=== PATIENT | female | born 1965 | race Caucasian/White ===

== ENCOUNTER 2018-11-28 17:24 | Outpatient (REF) | payer OTHER, SELFPAY ==
--- NOTE | 2018-11-28 14:00 | PAPFT_PTH ---
PATIENT: Kavita Dixon LOC: [facility] U#:[id number] AGE/SX: 52/F ROOM: RE11/28/[address]: Katy Fatima MD, DC : 1965 BED: DIS: 11/28/2018 SPEC #: [id number] RECD: 11/29/18 12:57 STATUS: YUNIER REAmauri #: [id number] JESSE: 11/28/18 14:[address]: Katy Fatima DEPT: [facility] Cytology RECD BY: Ariela Soto Tissues: 1 - CX/ENDOCX FOR PAP SMEARS Procedures: PAP THIN PREP/UVM Screening HPV DNA PROBE Comments: [id number]
== END 2018-11-28 17:44 ==
LOC: LBN 17:24
PROVIDERS: PCP Family Medicine; Visit Provider Family Medicine
DX: Z12.4 Encounter for screening for malignant neoplasm of cervix (principal); Z11.51 Encounter for screening for human papillomavirus (HPV)
CPT/HCPCS: 88142; 87624

== ENCOUNTER 2018-12-03 02:01 | Outpatient (CLI) | payer OTHER, SELFPAY ==
[2018-12-03 10:35] LABS: Cholesterol 215 mg/dL (50-200); HDL Cholesterol 72 mg/dL (40-60); LDL CHOLESTEROL 128 mg/dL (<100); TSH (W/Ref FT4) 1.51 uIU/mL (0.358-3.74); Triglyceride 40 mg/dL (30-150)
== END 2018-12-03 02:21 ==
PROVIDERS: PCP Family Medicine; Visit Provider Family Medicine
DX: Z00.00 Encounter for general adult medical examination without abnormal findings (principal); Z13.220 Encounter for screening for lipoid disorders; Z13.29 Encounter for screening for other suspected endocrine disorder
CPT/HCPCS: 36415; 80061; 83721; 84443

== ENCOUNTER 2019-12-01 13:01 | Outpatient (CLI) | payer OTHER, SELFPAY ==
--- NOTE | 2019-12-01 12:43 | DI.RAD_ITS ---
EXAM: XR LUMBAR SPINE COMPLETE INDICATION: chronic LBP M54.5. COMPARISON: No exams were available for comparison TECHNIQUE: 2D digital imaging was performed. FINDINGS: There is a moderate dextrorotoscoliosis with the apex at L2. No compression fractures seen. There a re degenerative disc changes with endplate osteophytes greatest at L 4-5 on the right. There are mil d facet joint degenerative changes. IMPRESSION: Scoliosis. Mild degenerative disc changes and facet degenerative changes.
== END 2019-12-01 13:21 ==
PROVIDERS: PCP Family Medicine; Visit Provider Family Medicine
DX: M54.5 Low back pain (principal); M51.36 Other intervertebral disc degeneration, lumbar region; M47.816 Spondylosis without myelopathy or radiculopathy, lumbar region
CPT/HCPCS: 72110

== ENCOUNTER 2020-04-22 02:04 | Outpatient (CLI) | payer OTHER, SELFPAY ==
--- NOTE | 2020-04-22 07:15 | DI.MAMMO_ITS ---
EXAM: MAMMO SCREENING CLINICAL HISTORY: screening,Z12.39 TECHNIQUE: Mammograms were interpreted according to the usual protocol including computer analysis w [employer] CAD system, tomosynthesis and C-view imaging. COMPARISON: 2017 and 2018. FINDINGS: The breasts are composed of heterogeneously dense fibroglandular densities, Breast Density category C . The patient has a history of multiple bilateral breast cysts. Areas of nodularity are again noted bi laterally. Benign calcifications are also seen. No suspicious masses or suspicious microcalcifications are seen. No skin thickening or abnormal axillary lymph nodes are seen. There has been no significant change from prior exams. IMPRESSION: BI-RADS Category 2- negative mammogram with benign Findings. Yearly screening mammography is recomme nded. Breast density category C, heterogeneously dense tissue which decreases the sensitivity of the mammog cam. The mammogram demonstrates the patient's breast tissue is dense. Dense breast tissue is very common a nd is not abnormal but dense breast tissue can make it harder to find cancer on a mammogram. Also, de nse breast tissue may increase breast cancer risk. This information about the result of the mammogram report was provided to the patient to raise their awareness. Use this report when you speak with the patient about their risks for breast cancer, which includes their family history. At that time, you may recommend additional screening tests (Ultrasound or MRI) as they might be useful based on their r isk. A negative radiographic report should not delay biopsy if a dominant or clinically suspicious mass is present. Up to ten percent of cancers are not identified on mammography. A negative report may reinforce clinical impression. Adenosis and dense breasts may obscure an underlying neoplasm. False positive reports average 6 to 10%.
== END 2020-04-22 02:24 ==
PROVIDERS: PCP Family Medicine; Visit Provider Family Medicine
DX: Z12.31 Encounter for screening mammogram for malignant neoplasm of breast (principal); N60.11 Diffuse cystic mastopathy of right breast; N60.12 Diffuse cystic mastopathy of left breast
CPT/HCPCS: 77063; 77067

== ENCOUNTER 2021-02-16 03:11 | Outpatient (CLI) | payer OTHER, SELFPAY ==
[2021-02-16 10:15] LABS: Source Nasal/Nares
[2021-02-16 15:20] LABS: COVID-19 PCR Negative (Negative)
== END 2021-02-16 03:12 | disposition home or self-care (01) ==
PROVIDERS: PCP Family Medicine; Visit Provider Surgery
DX: Z20.828 Contact with and (suspected) exposure to other viral communicable diseases (principal); Z01.818 Encounter for other preprocedural examination
CPT/HCPCS: 87635

== ENCOUNTER 2021-02-18 08:13 | Day surgery (SDC) | payer OTHER, SELFPAY ==
[2021-02-18 08:21] VITALS: BP 113/80; PULSE 78; RESP 16; TEMP 36.3; O2SAT 100
[2021-02-18] MEDS: Lactated Ringers 1,000 ML 80 ML IV (08:47)
--- NOTE | 2021-02-18 09:30 | BOWEL_PTH ---
PATIENT: Kavita Dixon LOC: [facility] U#:[id number] AGE/SX: 55/F ROOM: RE02/18/[address]: Nicolle Ortiz : 1965 BED: DIS: 02/18/2021 SPEC #: [id number] RECD: 02/18/21 12:37 STATUS: YUNIER REAmauri #: [id number] JESSE: 02/18/21 09:[address]: Nicolle Ortiz DEPT: Surgical Specimen RECD BY: Ariela Soto ENTERED: 02/18/21 12:38 SP TYPE: Bowel OTHR DR: Katy Fatima MD, DC Tissues: 1 - BIOPSY BOWEL Procedures: GROSS AND MICRO LEVEL 4 Comments: [id number]
--- NOTE | 2021-02-18 10:05 | COLE_ITS ---
Date of service: 02/18/21 Time of Service: 10:05 Colonoscopy Report Date of procedure: 02/18/21 Pre-op diagnosis general: T-V adenoma Post-op diagnosis procedure note: same Procedure: hot forcept polypectomy Anesthesia Type: General:No Airway Estimated blood loss (mL): 0 Pathology: other Complications: None Disposition: same day Prep: Miralax/Dulcolax Retraction Time: 14 mins Procedure Description: After informed consent was obtained the patient was taken to the procedure room and placed in a left decubitous position. Monitors were applied and a time out was done. The patients name, date of , procedure, allergies to medications and metal in their body was reviewed. The patient was then sedated. Once sedated and comfortable a rectal exam was done. External exam was normal. Internal exam revealed a normal sphincter tone and no palpable masses. The scope was then introduced and retrofelexed. no internal hemorrhoids were identified. The scope was then advanced to the cecum w/out difficulty. The TI and appendiceal orifice were identified. The prep was good. The scope was then slowly retracted over 14 minutes back into the rectum. There is a 0.75 cm polyp at 40 cm. It is pedunculated but quite small. It is removed with a hot biting forcep in 2 bites. All specimen is retrieved and no bleeding is noted. There are otherwise no other polyps visualized today. There are no diverticula or AVMs. The mucosa is otherwise pink and healthy. All specimen is retrieved and no bleeding is noted. The scope was removed and the patient was woken up and taken back to Same day surgery in stable condition. The patient tolerated the procedure well and there were no immediate complications. Follow up: The patient should follow up in 3-5 years (path pd) unless they deve lop changes in bowel habits or other new gastrointestinal complaints.
--- NOTE | 2021-02-18 10:07 | W.PM.DSUDISC ---
Discharge Plan Disposition Patient Disposition: HOME Condition: Good Discharge Details Reason For Visit: colon scope Attending Provider: Nicolle Ortiz Primary Care Provider: Katy Fatima Home Meds and New Rx's Prescriptions: No Action turmeric 400 mg capsule 400 mg PO .OCCASIONALLY RF: 0 Discharge Instructions Additional Instructions: Findings: small polyp x one. Otherwise normal colon Follow up: We will send a letter in approximately 3 weeks with the pathology results, and when to repeat the colonoscopy. Please call if you develop: fevers >101.5 Nausea or Vomiting Abdominal pain that is not transient DAY SURGERY UNIT POST COLONOSCOPY INSTRUCTIONS 1. Because there will be medication in your system for the next 24 hours, you may feel a little sleepy. Your coordination will be affected. Therefore: a. Do not drive or operate dangerous equipment for 24 hours. b. Do not drink alcohol beverages for 24 hours (not even beer). c. Plan to go home and rest for the day. 2. Generally there are no restrictions on your activity after a day or so has gone by, but you may feel a bit fatigued for a few days. 3 After you arrive home you may have a light meal and return to a normal diet as you can tolerate it without feeling sick to your stomach. 4. After surgery, you may feel pain or discomfort. This should be only transient, but if it persists please contact your doctor. 5. If there are any questions regarding the findings of your procedure, please feel free to contact your doctor. 6. If you are unable to contact your doctor with a problem, contact the hospital at [phone]. 7. Continue all your regular medications unless directed otherwise. I understand the above instructions and have no questions. Signature of Patient or Responsible Adult Escort Date/Time Name of Responsible Adult Escort Signature of Nurse Date/Time Activity:: No strenuous activity or heavy lifting x24 hours. Diet:: Small light meals x24 hours Discharge Orders Discharge Orders: Discharge Order (Routine); Ordered 02/18/21 Ordered By: Nicolle Ortiz DS: Diagnosis Discharge Diagnosis (1) Tubulovillous adenoma of colon: Status: Chronic
[2021-02-18 10:16] VITALS: BP 100/67; PULSE 58; RESP 18; TEMP 36.3; O2SAT 100
[2021-02-18 11:05] VITALS: BP 107/71; PULSE 66; RESP 18; TEMP 36.6; O2SAT 100
== END 2021-02-18 11:13 | disposition home or self-care (01) ==
PROVIDERS: PCP Family Medicine; Visit Provider Surgery
PROC: 0DJD8ZZ Inspection of Lower Intestinal Tract, Via Natural or Artificial Opening Endoscopic (ICD-10-PCS; CPT 45378; principal; 2021-02-18 09:00)
DX: Z12.11 Encounter for screening for malignant neoplasm of colon (principal); Z86.010 Personal history of colon polyps; D12.6 Benign neoplasm of colon, unspecified
CPT/HCPCS: 45384; 88305

== ENCOUNTER 2022-01-19 11:22 | Outpatient (REF) | payer OTHER, SELFPAY ==
--- NOTE | 2022-01-19 09:45 | PAPFT_PTH ---
PATIENT: Kavita Dixon LOC: [facility] U#:[id number] AGE/SX: 56/F ROOM: RE01/19/[address]: Katy Fatima MD, DC : 1965 BED: DIS: 01/19/2022 SPEC #: [id number] RECD: 01/19/22 18:23 STATUS: JEFFREYMargaret REQ #: [id number] JESSE: 01/19/22 09:[address]: Katy Fatima DEPT: [facility] Cytology RECD BY: Ariela Soto Tissues: 1 - CX/ENDOCX FOR PAP SMEARS Procedures: PAP THIN PREP/UVM Screening HPV DNA PROBE Comments: [id number]
== END 2022-01-19 11:23 | disposition home or self-care (01) ==
LOC: LBN 11:22
PROVIDERS: PCP Family Medicine; Visit Provider Family Medicine
DX: Z12.4 Encounter for screening for malignant neoplasm of cervix (principal); Z11.51 Encounter for screening for human papillomavirus (HPV)
CPT/HCPCS: 88142; 87624

== ENCOUNTER → 2022-07-04 02:27 | Outpatient (CLI) | payer OTHER, SELFPAY ==
--- NOTE | 2022-07-04 09:32 | DI.RAD_ITS ---
Exam(s) XR THORACIC SPINE COMPLETE EXAM: XR THORACIC SPINE COMPLETE CLINICAL HISTORY: mid back pain radiates to rt shoulder,arm,for one month; hx of scoliosis,. TECHNIQUE: 2D digital imaging was performed. Three views. COMPARISON: No exams were available for comparison FINDINGS: BONES: There is no fracture or destructive lesion. The vertebral bodies and posterior elements are un remarkable. ALIGNMENT: Minimal scoliosis of the lower thoracic region, convex toward the left. Scoliosis upper l umbar spine convex toward the right. DISKS: Small endplate osteophytes are noted throughout. SOFT TISSUE: Visualized lungs are clear. IMPRESSION: Mild degenerative disc changes and mild scoliosis. No compression fractures. DATA REPOSITORY: RADIATION DOSE DELIVERED:
== END ==
PROVIDERS: PCP Family Medicine; Visit Provider Family Medicine
DX: M41.9 Scoliosis, unspecified (principal)
CPT/HCPCS: 72072

== ENCOUNTER → 2022-08-01 00:50 | Outpatient (CLI) | payer OTHER, SELFPAY ==
--- NOTE | 2022-08-01 06:45 | DI.MRI_ITS ---
Exam(s) MR THORACIC SPINE WO EXAM: MR THORACIC SPINE WO CLINICAL HISTORY: mid back pain with radiation to rt arm/shoulder,M54.9. TECHNIQUE: Multiplanar multisequence MRI of the Thoracic spine was performed. COMPARISON: CR XR THORACIC SPINE COMPLETE from 07/04/2022 FINDINGS: Bones: The vertebral body heights are well maintained. Note is made of fusion of the C6 and C7 verte bral bodies. There is a mild S-type scoliosis of the thoracolumbar spine. The signal characteristic s are unremarkable. There is a hemangioma or fatty rest in the T4 vertebral body. Cord: The thoracic cord is normal size and signal intensity. No intrinsic cord lesion is present. Discs: No disc herniation or bulge is present. Soft tissues: Normal. T1-2: No disc herniation or bulge is identified. No central spinal canal or neural foraminal stenosi s. T2-3: No disc herniation or bulge is identified. No central spinal canal or neural foraminal stenosi s. T4-5: No disc herniation or bulge is identified. No central spinal canal or neural foraminal stenosi s. T5-6: No disc herniation or bulge is identified. No central spinal canal or neural foraminal stenosis . T6-7: No disc herniation or bulge is identified. No central spinal canal or neural foraminal stenosis . T7-8: No disc herniation or bulge is identified. No central spinal canal or neural foraminal stenosis . T8-9: No disc herniation or bulge is identified. No central spinal canal or neural foraminal stenosis . T9-10: No disc herniation or bulge is identified. No central spinal canal or neural foraminal stenosi s. T10-11:No disc herniation or bulge is identified. No central spinal canal or neural foraminal stenosi s. T11-12: No disc herniation or bulge is identified. No central spinal canal or neural foraminal stenos is. T12-L1: No disc herniations or bulges are present. No central spinal canal or neural foraminal steno sis. IMPRESSION: 1. Mild scoliosis of the thoracolumbar spine. 2. No focal disc herniation central spinal canal or neural foraminal stenosis is seen in the thoracic spine. 3. Unremarkable thoracic spinal cord. DATA REPOSITORY:
== END ==
PROVIDERS: PCP Family Medicine; Visit Provider Family Medicine
DX: M54.9 Dorsalgia, unspecified (principal); M41.9 Scoliosis, unspecified; M43.04 Spondylolysis, thoracic region
CPT/HCPCS: 72146

== ENCOUNTER 2023-06-26 18:38 | Outpatient (REF) | payer SELFPAY ==
--- NOTE | 2023-06-26 11:50 | PAPNONF_PTH ---
PATIENT: Kavita Dixon LOC: [facility] U#:[id number] AGE/SX: 57/F ROOM: RE06/26/[address]: Katy Fatima MD, DC : 1965 BED: DIS: 06/26/2023 SPEC #: [id number] RECD: 06/27/23 17:54 STATUS: JEFFREYMargaret REQ #: [id number] JESSE: 06/26/23 11:[address]: Katy Fatima DEPT: ON LICENSE OF [facility] Cytology RECD BY: Ariela Soto Tissues: 1 - BODY FLUID CYTO(NOT S/U/N/EM)UVM Procedures: BODY FLUID CYTO(NOT SPU/UR/NIP/ENDOM)UVM Comments: [id number] (NOT REFRIGERATED UNTIL 11:50 am ON 06/27/2023) (30 ml CYTOLYT ADDED ON 06/27/2023 @ 15:30) (SENT REFRIGERATED)
== END 2023-06-26 18:39 | disposition home or self-care (01) ==
LOC: LBN 18:38
PROVIDERS: PCP Family Medicine; Visit Provider Family Medicine
DX: N60.01 Solitary cyst of right breast (principal); R89.6 Abnormal cytological findings in specimens from other organs, systems and tissues
CPT/HCPCS: 88104

== ENCOUNTER 2024-09-18 10:38 | Day surgery (SDC) | payer SELFPAY ==
[2024-09-18 10:51] VITALS: BP 115/79; PULSE 68; RESP 20; TEMP 36.5; O2SAT 99
--- NOTE | 2024-09-18 11:09 | W.COLOREPORT ---
Date of service: 09/18/24 Time of Service: 11:09 Colonoscopy Report Procedure Description: PROCEDURES PERFORMED: 1. Colonoscopy PREOPERATIVE DIAGNOSIS: Surveillance colonoscopy, colon polyps POSTOPERATIVE DIAGNOSIS: Normal colon SURGEON: Mariposa Navarro MD INDICATION FOR PROCEDURE: the patient is a 58-year-old woman who had an adenomatous polyp (.75 cm) removed on her last colonoscopy. She has no symptoms or complaints. She has no family history of colon cancer (adopted). FINDINGS: No polyps. No inflammation anywhere. No diverticular disease. No obvious hemorrhoid disease. SURVEILLANCE interval/FOLLOW-UP: Guidelines suggest 10 years is safe. SPECIMENS: None EBL: Minimal COMPLICATIONS: None QUALITY of prep: Excellent Procedure in detail: The patient gave written consent and was in agreement with the indications, the potential risks as well as the benefits of the procedure. They were taken to the endoscopy suite and laid in the left lateral decubitus position. A timeout was performed and anesthesia was administered which was tolerated well. I started the procedure. Digital rectal and visual examination was performed and grossly within normal limits. A well-lubricated flexible colonoscope was then introduced and passed without any notable difficulty all the way to the cecum identified by the ileocecal valve and the appendiceal orifice. The scope was then slowly withdrawn with the above-noted findings. The patient tolerated the procedure well and was taken to the PACU in hemodynamically stable condition.
[2024-09-18] MEDS: Lactated Ringers 1,000 ML 80 ML IV (11:18)
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
[2024-09-18 11:25] VITALS: BMI 22.4
[2024-09-18 12:10] VITALS: BP 98/71; PULSE 65; RESP 16; TEMP 36.5; O2SAT 100
[2024-09-18 12:28] VITALS: BP 100/63; PULSE 58; RESP 16; TEMP 36.6; O2SAT 100
--- NOTE | 2024-09-18 12:52 | W.ANESPOSTOP ---
Postoperative Evaluation Date, Time and Location Date Performed: 09/18/24 Time Performed: 12:30 Patient Location: Day Surgery Unit Vital Signs Most Recent Imported Vital Signs: Most Recent Vital Signs Temp Pulse Resp BP Pulse Ox 36.6 C 58 L 16 100/63 100 09/18/24 12:28 09/18/24 12:28 09/18/24 12:28 09/18/24 12:28 09/18/24 12:28 Pain Score Most Recent Pain Score: Most Recent Pain Score Pain Level 0 09/18/24 12:28 Assessment Mental Status: Awake (Alert & Oriented to Patient Baseline) Airway and Respiratory Function: Patent airway with normal (patient baseline) respiratory exam Cardiovascular Function: Hemodynamically Stable Hydration Status: Adequately Hydrated Nausea & Vomiting: No Nausea or Vomiting Pain: Pt. Denies Any Pain Peripheral Nerve Block: Patient did not receive a nerve block
--- NOTE | 2024-09-18 12:54 | W.PM.DSUDISC ---
Date of service: 09/18/24 Time of Service: 12:54 Discharge Plan Disposition Patient Disposition: Home Condition: Good Discharge Details Attending Provider: Hank Navarro Primary Care Provider: Katy Fatima Home Meds and New Rx's Prescriptions: No Action bisacodyl [Dulcolax (bisacodyl)] 5 mg tablet,delayed release (DR/EC) 5 mg PO ONCE Qty: 4 0RF Rx Instructions: Take per colonoscopy instructions provided by ordering providers office polyethylene glycol 3350 17 gram/dose powder 17 g PO ONCE Qty: 238 0RF Rx Instructions: Take per colonoscopy instructions provided by ordering providers office Discharge Instructions Additional Instructions: FINDINGS: No polyps. No inflammation. Nothing to worry about. Stand Alone Forms: Anesthesia Discharge Inst., Colonoscopy Post Instructions, Alba Dyson (DSU) Activity:: Activity as Tolerated Diet:: As Tolerated Discharge Orders Discharge Orders: Discharge Order (Routine); Ordered 09/18/24 Ordered By: Hank Navarro Discharge Data Discharge Date/Time-TO BE ENTERED AT DEPARTURE: 09/18/24 12:47
== END 2024-09-18 12:47 | disposition home or self-care (01) ==
PROVIDERS: PCP Family Medicine; Visit Provider Student in an Organized Health Care Education/Training Program
PROC: 0DJD8ZZ Inspection of Lower Intestinal Tract, Via Natural or Artificial Opening Endoscopic (ICD-10-PCS; CPT 45378; principal; 2024-09-18 11:45)
DX: Z12.11 Encounter for screening for malignant neoplasm of colon (principal); Z86.0101 Personal history of adenomatous and serrated colon polyps
CPT/HCPCS: 45378; 00123; J2704

== ENCOUNTER 2025-03-30 12:36 | Outpatient (REF) | payer SELFPAY ==
--- NOTE | 2025-03-30 10:30 | PAPFT_PTH ---
PATIENT: Kavita Dixon LOC: [facility] #:[id number] AGE/SX: 59/F ROOM: RE03/30/[address]: Katy Fatima MD, DC : 1965 BED: DIS: 03/30/2025 SPEC #: [id number] RECD: 03/30/25 17:41 STATUS: YUNIER REAmauri #: [id number] JESSE: 03/30/25 10:[address]: Katy Fatima DEPT: [facility] Cytology RECD BY: Ariela Soto Tissues: 1 - CX/ENDOCX FOR PAP SMEARS Procedures: PAP THIN PREP/UVM Screening HPV DNA PROBE Comments: [id number] (HPV 16 & 18/45)
== END 2025-03-30 12:37 | disposition home or self-care (01) ==
LOC: LBN 12:36
PROVIDERS: PCP Family Medicine; Visit Provider Family Medicine
DX: Z11.51 Encounter for screening for human papillomavirus (HPV) (principal); Z01.419 Encounter for gynecological examination (general) (routine) without abnormal findings
CPT/HCPCS: 88142; 87624